=== PATIENT | female | born 1960 | race American Indian/Alaskan Native ===

== ENCOUNTER 2017-10-02 08:43 | Emergency (ER) | payer MEDICAID, MEDICARE ==
[2017-10-02] MEDS ORDERED: SODIUM BICARBONATE IV ONE (08:45)
[2017-10-02] MEDS ORDERED: ADRENALIN ONE (08:45)
--- NOTE | 2017-10-02 08:52 | Emergency Department Report ---
HPI - General Time Seen by Provider: 10/02/17 08:48 - HPI HPI: Room 2 The patient is a 57-year-old female brought in by EMS in cardiac arrest. Per EMS the patient was found unresponsive at [facility] [place] [facility]. EMS was called and the second injury reported on scene at 08:00 to find CPR already in progress by initial EMS. Initial EMS report the patient was defibrillated once. Second EMS states the patient has been asystolic during their entire transport. Patient was intubated by Combitube by EMS. Upon arrival to the ED the patient was still asystolic. The patient's Combitube was removed and he was intubated by myself using an ETT. ACLS protocols were continued without return of spontaneous circulation Location: Cardiovascular system Duration: [See above] Quality: asystole Severity: Severe Modifying factors: [see above] Context: [see above] Mode of transportation: [not driving] ED Past Medical Hx - Family History Family history: no significant - Social History Smoking Status: Unknown if ever smoked ED Review of Systems ROS: Stated complaint: CARDIAC ARREST Other details as noted in HPI Comment: Unobtainable due to pts medical conditions Physical Exam - Physical Exam Physical Exam: GENERAL: The patient is well-developed well-nourished female lying on stretcher being bagged via Combitube and receiving chest compressions from EMS. [] HEENT: Normocephalic. Atraumatic. NECK: Trachea midline CHEST/LUNGS: No spontaneous respirations. Breath sounds equal bilaterally with bagging after intubation by myself HEART/CARDIOVASCULAR: No heart sounds. Asystole on the monitor ABDOMEN: There is abdominal distention. SKIN: There is no diaphoresis. NEURO: GCS 3T MUSCULOSKELETAL: There is no evidence of acute injury. - Intubation Time Out Performed: No Sedative: none Laryngoscope: Greg Size: 3 ET Tube Size: 7 Tube Secured Depth (cm): 21 Tube Secured Location: lips Tube Placement Confirmation: visualized tube passing t, equal breath sounds bilat Patient Tolerated Procedure: no complications Intubation Complications: none ED Medical Decision Making - Differential Diagnosis cardiac arrest Critical care attestation.: If time is entered above; I have spent that time in minutes in the direct care of this critically ill patient, excluding procedure time. ED Disposition Clinical Impression: Cardiac arrest Disposition: DC-20 Is pt being admited?: No Does the pt Need Aspirin: No Condition: Poor Time of Disposition: 08:48 (patient )
== END 2017-10-02 14:04 ==
LOC: ED 08:43
DX: I46.9 Cardiac arrest, cause unspecified (principal)
CPT/HCPCS: 31500; 99285; J0171